=== PATIENT | female | born 1985 ===

== ENCOUNTER 2018-10-03 17:30 | Emergency (ER) | payer MEDICAID ==
[2018-10-03 17:48] VITALS: BMI 25.8
[2018-10-03 17:51] VITALS: TEMP 99.5
[2018-10-03] MEDS ORDERED: TDAP Vaccine 0.5 mL Syr IM ONE (18:59)
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
[2018-10-03 20:03] VITALS: BP 126/76; PULSE 68; RESP 19; O2SAT 100
== END 2018-10-03 19:59 | disposition home or self-care (01) ==
LOC: ED 17:30
DX: S00.511A Abrasion of lip, initial encounter (principal); Y08.89XA Assault by other specified means, initial encounter; Y92.9 Unspecified place or not applicable; Z23 Encounter for immunization